=== PATIENT | female | born 1985 | race Caucasian/White ===

== ENCOUNTER 2020-12-12 04:17 | Emergency (ER) | payer OTHER ==
[~2020-12-12] VITALS: Ht 162.6 cm; Wt 63.6 kg
[2020-12-12 05:58] VITALS: BP 118/68
== END 2020-12-12 07:45 | disposition home or self-care (01) ==
LOC: ED 04:25
DX: R06.00 Dyspnea, unspecified (principal); R06.02 Shortness of breath
CPT/HCPCS: 71045; 93005; 99283